=== PATIENT | female | born 1995 | race African-American/Black ===

== ENCOUNTER 2016-04-10 17:38 | Emergency (ER) | payer OTHER ==
[~2016-04-10] VITALS: Ht 162.6 cm; Wt 70.0 kg
[2016-04-10 17:41] VITALS: BP 141/77; PULSE 64; RESP 14; TEMP 98; O2SAT 99
[2016-04-10] MEDS ORDERED: CEPH-460 PO (18:45)
[2016-04-10] MEDS ORDERED: PRED-503 PO (18:45)
--- NOTE | 2016-04-10 18:46 | PD ---
HPI Chief Complaint: Skin Problem Time Seen by Provider: 18:44 Travel History International Travel<30 days: No Contact w/Intl Traveler<30days: No Traveled to known affect area: No History of Present Illness HPI 31-year-old female presents to the emergency Department with complaint of a rash to her stomach and her back that started 2 weeks ago. There is a spot on her right lower abdomen where the rash started and then it has spread. The rash is itchy. Denies fever, chills, nausea, vomiting. Denies recent illness. Reports using all sorts of different kind of perfumes and fragrances. Reports new detergents, lotions, soaps. Says she is always changing things up and using new things. Denies airway edema, shortness of breath, stridor, wheezing. Has not tried any medications or treatments to alleviate her symptoms. No known aggravating or relieving factors. No one of the rash like this. No known allergies. No other modifying factors or associated signs and symptoms. PFSH Past Medical History ?: Not LMP: 04/07/16 Social History Tobacco Use: No Substance Use: Yes (marijuana) Allergies-Medications (Allergen,Severity, Reaction): Coded Allergies: No Known Allergies (Unverified , 04/10/16) Reported Meds & Prescriptions Reported Meds & Active Scripts Active Deltasone (Prednisone) 20 Mg Tab 40 Mg PO DAILY 5 Days Keflex (Cephalexin) 500 Mg Cap 500 Mg PO Q6H 10 Days Review of Systems Except as stated in HPI: all other systems reviewed are Neg Physical Exam Narrative GENERAL: Well-nourished, well-developed patient, in no acute distress SKIN: Warm and dry. Small dry, crusted areas to the abdomen and mid back possibly consistent with impetigo; the areas are surrounded by a small ring of erythema; no signs of infection; without drainage. HEAD: Atraumatic. Normocephalic. EYES: Pupils equal and round. No scleral icterus. No injection or drainage. ENT: Mucosa pink and moist. . Airway patent. EARS: Bilateral pinnae and external canals appear within normal limits. NECK: Trachea midline. No lymphadenopathy. CARDIOVASCULAR: Regular rate and rhythm. No murmur appreciated. RESPIRATORY: No accessory muscle use. GASTROINTESTINAL: Flat. MUSCULOSKELETAL: No obvious deformities. No clubbing. No cyanosis. No edema. NEUROLOGICAL: Awake and alert. Oriented 3. No obvious cranial nerve deficits. Motor grossly within normal limits. Normal speech. Moves all extremities. 5/5 strength to all extremities. PSYCHIATRIC: Appropriate mood and affect; insight and judgment normal. Data Data Last Documented VS Vital Signs Date Time Temp Pulse Resp B/P Pulse Ox O2 Delivery O2 Flow Rate FiO2 04/10/16 17:41 98.0 64 14 141/77 99 MDM Medical Decision Making Medical Screen Exam Complete: Yes Emergency Medical Condition: Yes Medical Record Reviewed: Yes Differential Diagnosis Unspecific skin eruption, impetigo, hives Narrative Course 21-year-old female with a nonspecific espino options to her abdomen and mid back. The area appears to be dry and crusty and consistent with possible impetigo. The patient does admit to new lotions, soaps, detergents, fragrances stomach when she says she changes them frequently. The rash is itchy in nature. There is no signs of cellulitic process or infection. I will treat the patient with Keflex for possible impetigo. Patient is afebrile and nontoxic -appearing. She denies fever, chills, nausea, vomiting. Instructed patient to follow up with dermatology as needed. Keflex and Deltasone prescribed for home. Patient is medically cleared and stable for discharge. Discussed reasons to return to the emergency department. Instructed patient to follow up with primary care provider. Patient agrees with treatment plan. The patients vital signs are stable and the patient is stable for outpatient follow-up and treatment. Patient discharged home, stable and in no acute distress. Diagnosis Primary Impression: Rash and nonspecific skin eruption Referrals: [employer] Primary Care Physician Patient Instructions: Acute Rash (ED), General Instructions, Impetigo (ED) Departure Forms: Tests/Procedures, Work Release Enter return to work date: Apr 13, 2016 Additional Instructions: Soak affected area in warm water or apply wet compresses Use bandaids over lesions to decrease risk of spreading Wash clothes, linens, and pulse every day and don't share them with anyone else to decrease risk of spreading Wear gloves when applying antibiotic ointment and wash your hands thoroughly afterward Cut fingernails to prevent damage from scratching Wash hands frequently Follow-up with primary care provider 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
== END 2016-04-10 19:00 | disposition home or self-care (01) ==
LOC: NEPB 17:38
DX: R21 Rash and other nonspecific skin eruption (principal)
CPT/HCPCS: 99282